=== PATIENT | male | born 1935 | race Caucasian/White ===

== ENCOUNTER 2017-05-05 06:05 | Day surgery (SDC) | payer MEDICARE, OTHER ==
[~2017-05-05 06:05] MED LIST: AMBIEN10 M1 PO; ATIVAN0.5 M1 PO; CRANBERRY PO; FERROUS SULFAT325 MG PO; FLOMAX0.4 M1 PO; FLUPHENAZI25 MG/1 ML IM; FOSINOPRIL SODI20 M2 PO; MELATONIN5 M5 PO; MULTIVITAMINS1 EAC6 PO; MYTAB GAS80 M1 PO; OMEPRAZOLE40 M2 PO; TRAMADOL HCL50 M2 PO; TRIHEXYPHENIDYL2 M1 PO; URECHOLINE25 M2 PO; VENTOLIN HFA18 G2 INH; VITAMIN C500 M3 PO; VITAMIN D31000 UNI3 PO; WELLBUTRIN SR150 M2 PO; ZYRTEC10 M7 PO
[2017-05-05 06:57] LABS: BASO % 0.1 % (0-2); EOS % 0.3 % (0-7); HCT-HEMATOCRIT 25.9 % (36.0-53.5); HGB-HEMOGLOBIN 8.8 gm/dl (13.5-17.0); IMMATURE GRANULOCYTES ABSOLUTE 0.34 tho/cmm (0-0.03); IMMATURE GRANULOCYTES PERCENT 3.2 % (0-0.3); LYMPH % 18.6 % (20-45); MCH (MEAN CORPUSCULAR HGB) 29.4 pg (28.0-32.0); MCV (MEAN CELL VOLUME) 86.6 fl (82.0-96.0); MEAN PLATELET VOLUME 10.8 cmc (9.4-12.4); MONO % 22.2 % (0-12); MONOCYTE ABSOLUTE COUNT 2.4 tho/cmm (0.0-1.2); NEUTROPHILS % 55.6 % (40-80); PLATELET COUNT 303 tho/cmm (150-450); RED BLOOD COUNT 2.99 mil/cmm (4.40-5.70); RED CELL DISTRIBUTION WIDTH 15.4 % (12.4-16.4); WHITE BLOOD COUNT 10.7 tho/cmm (4.0-10.0)
[2017-05-05 07:15] LABS: ALB/GLOB RATIO 0.4 (0.8-2.0); ALBUMIN 3.2 g/dl (3.5-5.0); ALKALINE PHOSPHATASE 84 U/L (33-138); ALT/SGPT 20 U/L (12-78); ANION GAP 16 mmol/L (0-20); AST/SGOT 20 U/L (10-40); BILIRUBIN,TOTAL 0.5 mg/dl (0.0-1.5); BLOOD UREA NITROGEN 16 mg/dl (6-24); CALCIUM 8.8 mg/dl (8.5-10.5); CARBON DIOXIDE-VENOUS 22 mmol/L (22-32); CHLORIDE 92 mmol/l (96-110); CREATININE 1.29 mg/dl (0.60-1.30); GLUCOSE 78 mg/dL (70-110); POTASSIUM 3.6 mmol/L (3.7-5.1); SODIUM 126 mmol/L (135-145); eGFR VALUE FOR BLACK 60 mL/Min
[2017-05-05 10:18] LABS: FERRITIN 100 ng/ml (22-388)
== END 2017-05-05 10:20 ==
LOC: SHSC 06:05 → ENDOS 08:10
PROVIDERS: Specialist
PROC: 0DJD8ZZ Inspection of Lower Intestinal Tract, Via Natural or Artificial Opening Endoscopic (ICD-10-PCS; principal; 2017-05-05)
PROC: 0D598ZZ Destruction of Duodenum, Via Natural or Artificial Opening Endoscopic (ICD-10-PCS; 2017-05-05)
DX: K31.819 Angiodysplasia of stomach and duodenum without bleeding (principal); D50.9 Iron deficiency anemia, unspecified; K21.9 Gastro-esophageal reflux disease without esophagitis; K57.30 Diverticulosis of large intestine without perforation or abscess without bleeding; K64.8 Other hemorrhoids; D46.9 Myelodysplastic syndrome, unspecified; D69.6 Thrombocytopenia, unspecified; I10 Essential (primary) hypertension; M19.90 Unspecified osteoarthritis, unspecified site; F41.9 Anxiety disorder, unspecified; J43.9 Emphysema, unspecified; Z86.010 Personal history of colon polyps; Z80.0 Family history of malignant neoplasm of digestive organs; Z79.899 Other long term (current) drug therapy; Z98.890 Other specified postprocedural states
CPT/HCPCS: J7030